=== PATIENT | male | born 1930 | race Caucasian/White ===

== ENCOUNTER 2017-10-03 14:47 | Inpatient (IN) | payer MEDICARE, BC ==
[~2017-10-03] VITALS: Ht 170.2 cm; Wt 43.1 kg
--- NOTE | 2017-10-03 14:47 | NUR ---
YUE MARTELL 81 FROM [facility],"NOT ACTING RIGHT" PER WHO CAME TO VISIT. PT PLACED ON GOWN AND MONITOR. MD AT BEDSIDE FOR EVAL.
[2017-10-03] MEDS ORDERED: IV NS 0.9% 1,000 ML BAG IV ONE (15:00)
[2017-10-03 15:17] LABS: BASOPHILS % (AUTO) 0.3 % (0.0-2.0); EOSINOPHILS % (AUTO) 0.1 % (0.0-6.0); HEMATOCRIT 36 % (39-51); HEMOGLOBIN 12.4 g/dL (13.5-17.5); LYMPHOCYTES # (AUTO) 0.4 /CMM (0.8-4.8); LYMPHOCYTES % (AUTO) 2.2 % (20.0-44.0); MEAN CORPUSCULAR HEMOGLOBIN 31 PG (26.0-33.0); MEAN CORPUSCULAR HGB CONC 34 g/dl (31.0-36.0); MEAN CORPUSCULAR VOLUME 90 fL (80-96); MONOCYTES # (AUTO) 0.2 /CMM (0.1-1.30); NEUTROPHILS # (AUTO) 15.4 /CMM (1.8-8.9); NEUTROPHILS % (AUTO) 96.4 % (43.0-81.0); PLATELET COUNT (AUTO) 389 /CMM (150-450); RDW COEFFICIENT OF VARIATION 15.1 (11.5-15.0); RED BLOOD CELL COUNT(AUTO) 4.05 MIL/uL (4.5-6.0)
[2017-10-03 15:26] LABS: CALCIUM, SERUM 9.4 mg/dL (8.5-10.1); CARBON DIOXIDE 19 mmol/L (21-32); CHLORIDE 103 mmol/L (98-107); CREATININE 1.7 mg/dL (0.6-1.3); GLUCOSE 156 mg/dL (74-106); POTASSIUM 5.6 mmol/L (3.5-5.1); SODIUM SERUM 137 mmol/L (136-145); UREA NITROGEN, BLOOD 40 mg/dL (7-18)
[2017-10-03 15:28] LABS: INR 1.26 (0.85-1.15)
[2017-10-03] MEDS ORDERED: MAGN400O6 GT (15:30)
[2017-10-03] MEDS ORDERED: BISA10SU8 RC (15:30)
[2017-10-03] MEDS ORDERED: RIVA10TA PO (15:30)
[2017-10-03] MEDS ORDERED: ALBU2.5V38 IH (15:30)
[2017-10-03] MEDS ORDERED: ACET-868 PO (15:30)
[2017-10-03] MEDS ORDERED: MULT-213 PO (15:30)
[2017-10-03] MEDS ORDERED: TAMS0.4C34 PO (15:30)
[2017-10-03] MEDS ORDERED: ASCO500T9 PO (15:30)
[2017-10-03] MEDS ORDERED: DEXT15DR6 EACHEYE (15:30)
[2017-10-03] MEDS ORDERED: NA P133E RC (15:30)
[2017-10-03] MEDS ORDERED: MEGE400O4 PO (15:30)
[2017-10-03 15:32] LABS: ALANINE AMINOTRANSFERASE 27 U/L (12-78); ALBUMIN 2.2 g/dL (3.4-5.0); ALKALINE PHOSPHATASE 63 U/L (46-116); ASPARTATE AMINOTRANSFERASE 17 U/L (15-37); BILIRUBIN,DIRECT 0.2 mg/dL (0.0-0.2); BILIRUBIN,TOTAL 0.7 mg/dL (0.2-1.0); TOTAL PROTEIN, SERUM 6.6 g/dL (6.4-8.2)
[2017-10-03 15:34] LABS: TROPONIN I < 0.017 ng/mL (0.00-0.056)
[2017-10-03 15:41] LABS: APPEARANCE,URINE Cloudy (CLEAR); BILIRUBIN,URINE SMALL (NEGATIVE); BLOOD, URINE Large Ery/uL (NEGATIVE); COLOR,URINE Dark (YELLOW); KETONES,URINE Negative (NEGATIVE); LEUKOCYTE ESTERASE ,URINE Large (NEGATIVE); NITRITE, URINE Negative (NEGATIVE); PH,URINE 5.5 (5.0-8.0); PROTEIN,URINE 30 mg/dl (NEGATIVE); UGLUCOSE Negative (NEGATIVE)
[2017-10-03 15:51] LABS: WBC,URINE TOO NUMEROUS TO COUN /HPF (0-3)
[2017-10-03 15:52] LABS: BACTERIA,URINE Few /HPF (None Seen); SQUAMOUS EPITHELIAL CELL,UR Rare /HPF (None Seen); YEAST,URINE Moderate /HPF (None Seen)
[2017-10-03] MEDS ORDERED: IV NS 0.9% 500 ML BAG IV ONE ×3 (16:00→18:30)
[2017-10-03] MEDS ORDERED: PIPERACILLIN /TAZOBACTAM 3.375 G in IV D5W 50 ML IV ONE (16:00)
[2017-10-03] MEDS ORDERED: VANCOMYCIN 1 GM in IV D5W 250 ML IV ONE (16:00)
[2017-10-03] MEDS ORDERED: ONDANSETRON HCL/PF 4 MG/2 ML VIAL IVP PRN (17:00)
[2017-10-03] MEDS ORDERED: MAGNESIUM HYDROXIDE 30 ML UDC PO PRN (17:00)
[2017-10-03] MEDS ORDERED: HYDROCODONE/APAP 5/325MG 1 EACH TABLET PO PRN (17:00)
[2017-10-03] MEDS ORDERED: Z GUARD REMEDY 2 OZ OINT TP PRN (17:00)
[2017-10-03] MEDS ORDERED: LEVOFLOXACIN 750 MG /D5W 150ML 750 MG in PREMIX 1 EA IV SCH ×2 (17:00→18:00)
[2017-10-03] MEDS ORDERED: ACETAMINOPHEN 325 MG TABLET PO PRN (17:00)
[2017-10-03] MEDS ORDERED: ALBUTEROL FS 2.5 MG/3 ML VIAL.NEB NEB ONE (17:00)
[2017-10-03] MEDS ORDERED: BISACODYL SUPP (10 MG) 10 MG/SUPP.RECT SUPP.RECT RC PRN (17:00)
[2017-10-03] MEDS ORDERED: MAG HYDROX/AL HYDROX/SIMETH 30 ML UDC PO PRN (17:00)
[2017-10-03] MEDS ORDERED: IPRATROPIUM NEB FS 0.5 MG/2.5 ML AMPUL.NEB NEB ONE (17:00)
[2017-10-03] MEDS ORDERED: ALBUTEROL FS 2.5 MG/3 ML VIAL.NEB ONE (17:24)
[2017-10-03] MEDS ORDERED: IPRATROPIUM NEB FS 0.5 MG/2.5 ML AMPUL.NEB ONE (17:24)
[2017-10-03] MEDS ORDERED: LANOLIN/MIN OIL/PETROLAT,WHT 3.5 GM TUBE EACHEYE PRN (17:30)
--- NOTE | 2017-10-03 17:33 | NUR ---
REPORT GIVEN TO ANGELICA ROSS FOR CHRIS
[2017-10-03] MEDS ORDERED: FEE PK DOSING 1 MIN EA MC ONE (17:39)
[2017-10-03] MEDS ORDERED: PIPERACILLIN /TAZOBACTAM 3.375 G in IV D5W 50 ML IV SCH (18:00)
[2017-10-03 18:20] VITALS: BP 88/38
--- NOTE | 2017-10-03 18:20 | NUR ---
RECEIVED PATIENT FROM ER VIA STRETCHR,CLARIFIED CODE STATUS WITH CHRS TRACEY DNR/DNI,WILL ENDORSED TO NIGHT NURSE FOR CONTINUITY OF CARE/ADMISSION PROCESS.
--- NOTE | 2017-10-03 18:25 | NUR ---
PT TRANSFERRED TO [facility] VIA ACLS PROTOCOL
--- NOTE | 2017-10-03 18:25 | NUR ---
CARTOGRAPHIC TECHNICIAN NOTES PATIENT IN BED, SEEN BY ADVID TRACEY NP EARLIER, ORDERED 500 ML NS BOLUS POST 2ND BAG OF 1L NS AT ER.
[2017-10-03 18:28] LABS: ABG OXYGEN SATURATION 84.2 % (92.0-98.5); ABG PO2 50.9 mmHg (75.0-100.0); AaDO2 354.4 mmHg; COHb 0.3 % (0.5-1.5); MetHb 0.8 % (0.0-1.5); O2Hb 83.3 % (94.0-97.0); SITE, ABG Right Radial; VENT MODE, BG SIMPLE MASK
--- NOTE | 2017-10-03 18:36 | NUR ---
RELAYED ABG RESULT TO DAVID TRACEY NP OREDERED TO INCREASE OXYGEN RT NOTIFIED.
[2017-10-03] MEDS: ALBUTEROL FS 2.5 MG/3 ML VIAL.NEB IH SCH (19:36)
[2017-10-03 20:00] VITALS: BP 93/36
[2017-10-03] MEDS: FLUCONAZOLE IN NS 100 MG in PREMIX 1 EA IV SCH ×2 (20:00)
[2017-10-03] MEDS: PIPERACILLIN /TAZOBACTAM 2.25 G in IV D5W 50 ML IV SCH (20:00)
[2017-10-03] MEDS: TAMSULOSIN 0.4 MG CAP.SR.24H PO SCH (21:11)
[2017-10-03] MEDS ORDERED: FLUCONAZOLE IN NS 100 ML IV ONE (21:38)
--- NOTE | 2017-10-03 21:44 | NUR ---
RN NOTES DIFLUCAN IV ADMINISTERED WHEN DRUG AVAILABLE. ON HAND 200 IN 100ML NS. ORDER FOR 100MG. WILL ADMINISTER HALF OF DRUG ON HAND, TOTAL OF 100 MG ORDERED. PRIMARY NURSE ASHLEY GERARDO, NURSING CUTTER OPERATOR ASBESTOS SHINGLE FRANCA GERARDO. WILL CONTINUE TO CLOSELY MONITOR
[2017-10-03] MEDS: IV NS 0.9% 1,000 ML IV PRN (21:49)
[2017-10-03] MEDS ORDERED: MAGNESIUM HYDROXIDE 30 ML UDC GT SCH (22:00)
[2017-10-04] VITALS (7 sets, daily range): BP systolic 77–88; BP diastolic 43–47
[2017-10-04] MEDS: PIPERACILLIN /TAZOBACTAM 2.25 G in IV D5W 50 ML IV SCH ×4 (00:34→18:12)
[2017-10-04] MEDS: ALBUTEROL FS 2.5 MG/3 ML VIAL.NEB IH SCH ×4 (01:59→19:55)
[2017-10-04 07:14] LABS: HEMATOCRIT 33 % (39-51); HEMOGLOBIN 10.9 g/dL (13.5-17.5); LYMPHOCYTES # (AUTO) 0.4 /CMM (0.8-4.8); LYMPHOCYTES % (AUTO) 1.9 % (20.0-44.0); MEAN CORPUSCULAR HEMOGLOBIN 31 PG (26.0-33.0); MEAN CORPUSCULAR HGB CONC 34 g/dl (31.0-36.0); MEAN CORPUSCULAR VOLUME 92 fL (80-96); MONOCYTES # (AUTO) 0.3 /CMM (0.1-1.30); MONOCYTES % (AUTO) 1.2 % (2.0-12.0); NEUTROPHILS # (AUTO) 22.8 /CMM (1.8-8.9); NEUTROPHILS % (AUTO) 96.9 % (43.0-81.0); PLATELET COUNT (AUTO) 341 /CMM (150-450); RDW COEFFICIENT OF VARIATION 16.3 (11.5-15.0); RED BLOOD CELL COUNT(AUTO) 3.53 MIL/uL (4.5-6.0); WHITE BLOOD COUNT (AUTO) 23.6 K/uL (4.3-11.0)
[2017-10-04 07:25] LABS: CARBON DIOXIDE 21 mmol/L (21-32); CHLORIDE 109 mmol/L (98-107); CREATININE 1.6 mg/dL (0.6-1.3); GLUCOSE 81 mg/dL (74-106); MAGNESIUM 2.1 mg/dL (1.8-2.4); POTASSIUM 4.9 mmol/L (3.5-5.1); SODIUM SERUM 144 mmol/L (136-145); UREA NITROGEN, BLOOD 49 mg/dL (7-18)
[2017-10-04 07:53] LABS: CHOLESTEROL 70 mg/dL (<200); HDL CHOLESTEROL 47 mg/dL (40-60); LDL 17 mg/dL (0-99); THYROID STIMULATING HORMONE 3.373 uIU/mL (0.358-3.74); TRIGLYCERIDES 20 mg/dL (30-150)
--- NOTE | 2017-10-04 08:00 | NUR ---
STRUCTURAL DESIGNER NOTE PATIENT LETHARGIC WILL NO GIVE PO MEDICATION FOR PATIENT SAFETY. ALL SAFETY MEASURES IN PLACE WILL CONTINUE TO MONITOR CLOSELY.
--- NOTE | 2017-10-04 08:15 | NUR ---
WOUND CARE CONSULT: PT PRESENTS VERY CACHECTIC WITH SACRAL ULCER, STAGE 2, PRESENT ON ADMISSION. PT ALSO NOTED TO HAVE LEFT CHEEK LESION, RT ANTERIOR SHOULDER BRUISING WITH DRY ABRASION AND ONE STERI STRIP ON RT ANTERIOR LOWER LEG, DRY AND INTACT. SOME BRUISING AND DRY ABRASIONS NOTED TO ANTERIOR LOWER LEGS, ALL ABOVE PRESENT ON ADMISSION. RECOMMENDATIONS MADE FOR WOUND CARE AND SKIN PROTECTION. DISCUSSED WITH NURSING STAFF. PT ON ELADIA ISOFLEX LOW AIRLOSS BED. ALL SKIN PROTECTION MEASURES IN PLACE. WILL SEE PRN. MORROW IN AGREEMENT WITH PLAN OF CARE. Addendum: 10/04/17 at 0817 by JOSE MARTINEZ WNDNU Amended: Links added.
[2017-10-04] MEDS ORDERED: HYDROGEL DRESSING 90 GM TUBE TP PRN (08:30)
[2017-10-04] MEDS: MEGESTROL ACETATE SUSP 400 MG/10 ML UDC PO SCH (08:52)
[2017-10-04] MEDS: RIVAROXABAN 10 MG TABLET PO SCH (08:52)
[2017-10-04] MEDS: MULTIVIT, IRON, MIN NO. 8, FA 1 TAB PO SCH (08:52)
[2017-10-04] MEDS: ASCORBIC ACID 500 MG TABLET PO SCH (08:52)
[2017-10-04] MEDS: HYDROGEL DRESSING 90 GM TUBE TP SCH (08:56)
[2017-10-04] MEDS: PANTOPRAZOLE 40 MG VIAL IV SCH (08:56)
[2017-10-04] MEDS: VANCOMYCIN 500 MG in IV NS 0.9% 100 ML IV SCH (09:00)
[2017-10-04 09:24] LABS: BAND % (MANUAL) 39 % (0.0-5.0); LYMPHOCYTES % (MANUAL) 1 % (16-48); MONOCYTES % (MANUAL) 5 % (0-11.0); NEUTROPHILS % (MANUAL) 55 (42-76)
--- NOTE | 2017-10-04 16:00 | NUR ---
PT NOT STABLE FOR CT SCAN, VANDANA MARTINEZ WILL CALL.
[2017-10-04] MEDS: FLUCONAZOLE IN NS 100 MG in PREMIX 1 EA IV SCH ×2 (21:02)
[2017-10-04] MEDS: MUPIROCIN OINT 2% 22 GM TUBE SCH (21:03)
[2017-10-04] MEDS: TAMSULOSIN 0.4 MG CAP.SR.24H PO SCH (21:04)
[2017-10-05] VITALS: BP 88/47
[2017-10-05] MEDS: ALBUTEROL FS 2.5 MG/3 ML VIAL.NEB IH SCH ×4 (00:32→19:27)
--- NOTE | 2017-10-05 00:51 | NUR ---
RN NOTES 0051: PATIENT'S HR NOTED TO ELEVATE AND SUSTAIN IN THE 180'S. BP 76/47, RR 40 SHALLOW, TEMP 98.[address] HANDLEY PAGED, AWAITING CALL BACK 0055: RECEIVED CALL BACK FROM , NO NEW ORDERS RECEIVED AT THIS TIME. WILL CONTINUE TO CLOSELY MONITOR THE PATIENT
[2017-10-05] MEDS: IV NS 0.9% 1,000 ML IV PRN (01:08)
[2017-10-05] MEDS: PIPERACILLIN /TAZOBACTAM 2.25 G in IV D5W 50 ML IV SCH ×5 (01:11→23:44)
--- NOTE | 2017-10-05 01:15 | NUR ---
RN NOTES PATIENT'S HR BACK TO BASELINE IN THE 110-120 RANGE. WILL CONTINUE TO CLOSELY MONITOR.
[2017-10-05 04:00] VITALS: BP 77/44
[2017-10-05] MEDS: VANCOMYCIN 500 MG in IV NS 0.9% 100 ML IV SCH ×2 (04:17→21:52)
--- NOTE | 2017-10-05 07:00 | NUR ---
RN CLOSING NOTES PATIENT RESTING IN BED, APPEARS COMFORTABLE. NO FURTHER EPISODES OF SVT NOTED THROUGHOUT SHIFT. WILL ENDORSE THE PATIENT TO THE AM SHIFT NURSE FOR CHRIS
[2017-10-05 07:18] LABS: CALCIUM, SERUM 9.2 mg/dL (8.5-10.1); CARBON DIOXIDE 19 mmol/L (21-32); CHLORIDE 114 mmol/L (98-107); CREATININE 1.3 mg/dL (0.6-1.3); GLUCOSE 106 mg/dL (74-106); POTASSIUM 3.9 mmol/L (3.5-5.1); SODIUM SERUM 148 mmol/L (136-145); UREA NITROGEN, BLOOD 57 mg/dL (7-18)
[2017-10-05 07:41] LABS: HEMOGLOBIN 10.4 g/dL (13.5-17.5); RED BLOOD CELL COUNT(AUTO) 3.39 MIL/uL (4.5-6.0)
[2017-10-05 07:42] LABS: BASOPHILS % (AUTO) 0.1 % (0.0-2.0); EOSINOPHILS % (AUTO) 0.1 % (0.0-6.0); HEMATOCRIT 30 % (39-51); LYMPHOCYTES # (AUTO) 0.4 /CMM (0.8-4.8); LYMPHOCYTES % (AUTO) 1.9 % (20.0-44.0); MEAN CORPUSCULAR HEMOGLOBIN 31 PG (26.0-33.0); MEAN CORPUSCULAR HGB CONC 34 g/dl (31.0-36.0); MEAN CORPUSCULAR VOLUME 89 fL (80-96); MONOCYTES # (AUTO) 0.5 /CMM (0.1-1.30); MONOCYTES % (AUTO) 2.3 % (2.0-12.0); NEUTROPHILS # (AUTO) 22.1 /CMM (1.8-8.9); NEUTROPHILS % (AUTO) 95.6 % (43.0-81.0); PLATELET COUNT (AUTO) 366 /CMM (150-450); RDW COEFFICIENT OF VARIATION 15.1 (11.5-15.0)
[2017-10-05 08:00] VITALS: BP 77/44
[2017-10-05] MEDS: ASCORBIC ACID 500 MG TABLET PO SCH (09:00)
[2017-10-05] MEDS: MEGESTROL ACETATE SUSP 400 MG/10 ML UDC PO SCH (09:00)
[2017-10-05] MEDS: RIVAROXABAN 10 MG TABLET PO SCH (09:00)
[2017-10-05] MEDS: MULTIVIT, IRON, MIN NO. 8, FA 1 TAB PO SCH (09:00)
[2017-10-05] MEDS: PANTOPRAZOLE 40 MG VIAL IV SCH (09:06)
[2017-10-05] MEDS: HYDROGEL DRESSING 90 GM TUBE TP SCH (10:06)
[2017-10-05] MEDS: MUPIROCIN OINT 2% 22 GM TUBE SCH ×2 (10:06→21:03)
[2017-10-05 12:00] VITALS: BP 94/53
--- NOTE | 2017-10-05 12:30 | NUR ---
TELE ELECTRICAL JOURNEYMAN NOTE, PATIENT VISITOR EX- (JUANITA) CAME IN THIS AFTERNOON TO F/U REGARDING HOSPICE CARE AND PAIN MANAGEMENT. SHE GAVE INFORMATION REGARDING HIS PLACEMENT [facility], [id number] [facility] [place] [address] O:[phone] C:[phone] CONTACT ESTEFANY AGUILAR, FULFILLMENT ASSOCIATE. CALLED ANIMAL CHIROPRACTOR MOHINDER WHEELER REGARDING PAIN MEDICATION FOR PATIENT WHICH HE IS FOLLOWING UP WITH HOSPICE COMPANY WHICH WILL EVALUATE PATIENT FOR PAIN TREATMENT. WILL CONTINUE TO F/U ON ISSUE.
[2017-10-05 16:00] VITALS: BP 95/51
--- NOTE | 2017-10-05 19:30 | NUR ---
RN/TELE NOTES: RECEIVED PT. IN BED W/ HOB ELEVATED W/ O2 @ 15 VIA NRM SAT 99%. ALERT TO NAME AND TACTILE STIMULI. ON TELE MONITOR ST 104. W/ IVF GOING ON VIA LAC PATENT AND INTACT W/ NO S/S OF INFECTION/INFILTRATION NOTED. CALL LIGHT W/REACH. WILL CONTINUE TO MONITOR. NO S/S OF FACIAL GRIMACE OR MOANING NOTED. NO S/S OF RESPIRATORY DISTRESS NOTED.
[2017-10-05 20:00] VITALS: BP 94/51
[2017-10-05] MEDS: FLUCONAZOLE IN NS 100 MG in PREMIX 1 EA IV SCH ×2 (21:00)
[2017-10-05] MEDS: TAMSULOSIN 0.4 MG CAP.SR.24H PO SCH (21:35)
[2017-10-06] VITALS: BP 99/56
[2017-10-06] MEDS: ALBUTEROL FS 2.5 MG/3 ML VIAL.NEB IH SCH ×3 (01:33→14:00)
[2017-10-06 04:00] VITALS: BP_SYST 126; BP_SYST 90; BP_DIAS 56; BP_DIAS 68
[2017-10-06] MEDS: PIPERACILLIN /TAZOBACTAM 2.25 G in IV D5W 50 ML IV SCH ×2 (05:03→12:40)
[2017-10-06] MEDS: IV NS 0.9% 1,000 ML IV PRN (05:27)
--- NOTE | 2017-10-06 07:11 | NUR ---
RN/TELE NOTES: RT DEEP SUCTION PT. W/ THICK YELLOW/WHITISH SECRETIONS. PT. IMPACTED. DISIMPACTED W/ X-LARGE HARD, BROWN STOOL. REPORT GIVEN TO AM NURSE FOR CHRIS.
[2017-10-06 08:00] VITALS: BP 83/50
[2017-10-06] MEDS: RIVAROXABAN 10 MG TABLET PO SCH (08:23)
[2017-10-06] MEDS: MULTIVIT, IRON, MIN NO. 8, FA 1 TAB PO SCH (08:23)
[2017-10-06] MEDS: ASCORBIC ACID 500 MG TABLET PO SCH (08:23)
[2017-10-06] MEDS: MEGESTROL ACETATE SUSP 400 MG/10 ML UDC PO SCH (08:23)
[2017-10-06] MEDS: HYDROGEL DRESSING 90 GM TUBE TP SCH (08:40)
[2017-10-06] MEDS: MUPIROCIN OINT 2% 22 GM TUBE SCH (08:41)
[2017-10-06] MEDS: PANTOPRAZOLE 40 MG VIAL IV SCH (08:41)
[2017-10-06 12:00] VITALS: BP 82/55
[2017-10-06] MEDS ORDERED: VANCOMYCIN 0.75 GM in IV NS 0.9% 250 ML IV SCH (12:00)
--- NOTE | 2017-10-06 17:40 | NUR ---
Tele/RN - Notes Patient alert to self, remain afebrile, tele shows ST 100-110s, on 15 lpm via NRB. Patient on comfort measures, DNR/DNI. IVF NS at 50 ml/hr infusing well. Canseco catheter in place. Wound treatment done on sacral area as ordered and photo taken for reference. Patient was discharged to [facility] hosp[facility] today. Discharge papers given to ambulance crew. Patient endorsed accordingly.
== END 2017-10-06 17:51 | DRG 871 ==
LOC: ER 14:48 → TELE1 17:01
PROVIDERS: ADMIT Nurse Practitioner Acute Care; ATTEND Nurse Practitioner Acute Care
DX: A41.9 Sepsis, unspecified organism (principal); J96.01 Acute respiratory failure with hypoxia; J69.0 Pneumonitis due to inhalation of food and vomit; N17.0 Acute kidney failure with tubular necrosis; E43 Unspecified severe protein-calorie malnutrition; R65.21 Severe sepsis with septic shock; G92 Toxic encephalopathy; E87.2 Acidosis; I95.9 Hypotension, unspecified; J90 Pleural effusion, not elsewhere classified; I50.32 Chronic diastolic (congestive) heart failure; N39.0 Urinary tract infection, site not specified; L89.152 Pressure ulcer of sacral region, stage 2; I11.0 Hypertensive heart disease with heart failure; E87.5 Hyperkalemia; E86.0 Dehydration; Z66 Do not resuscitate; Z51.5 Encounter for palliative care; Z79.899 Other long term (current) drug therapy; E78.5 Hyperlipidemia, unspecified; D63.8 Anemia in other chronic diseases classified elsewhere; J44.9 Chronic obstructive pulmonary disease, unspecified; M81.0 Age-related osteoporosis without current pathological fracture; Z85.46 Personal history of malignant neoplasm of prostate; Z79.01 Long term (current) use of anticoagulants; N40.0 Benign prostatic hyperplasia without lower urinary tract symptoms; Z22.322 Carrier or suspected carrier of Methicillin resistant Staphylococcus aureus; R62.7 Adult failure to thrive; S80.819A Abrasion, unspecified lower leg, initial encounter; S40.819A Abrasion of unspecified upper arm, initial encounter; X58.XXXA Exposure to other specified factors, initial encounter; Y92.129 Unspecified place in nursing home as the place of occurrence of the external cause; S80.10XA Contusion of unspecified lower leg, initial encounter; S40.029A Contusion of unspecified upper arm, initial encounter; F03.90 Unspecified dementia, unspecified severity, without behavioral disturbance, psychotic disturbance, mood disturbance, and anxiety; H02.104 Unspecified ectropion of left upper eyelid; H02.101 Unspecified ectropion of right upper eyelid
CPT/HCPCS: 31720; 36415; 36600; 71045-TC; 80048-TC; 80061-TC; 80076-TC; 80202-TC; 81000-TC; 83605-TC; 83735-TC; 84100-TC; 84443-TC; 84484-TC; 85025-TC; 85730-TC; 87040-TC; 87081-TC; 87086-TC; 94760-TC; 94799-TC; A4216; A4606; A6248; A6403; C9113; J1450; J1956; J2543; J3370; J7030; J7040; J7050; J7060